=== PATIENT | female | born 2005 | race African-American/Black ===

== ENCOUNTER 2023-10-10 12:36 | Emergency (ER) | payer SELFPAY ==
[~2023-10-10] VITALS: Ht 165.1 cm; Wt 59.0 kg
[2023-10-10 12:55] VITALS: O2SAT 100
[2023-10-10] MEDS ORDERED: IBUP-2028 MT (18:50)
[2023-10-10] MEDS ORDERED: ALBU6.7H15 INH (18:50)
[2023-10-10] MEDS ORDERED: BO1 TP (18:50)
[2023-10-10] MEDS ORDERED: ACYC200C31 MT (18:53)
[2023-10-10 19:05] VITALS: BP 124/86; PULSE 103; RESP 16; TEMP 98.4
== END 2023-10-10 19:23 | disposition home or self-care (01) ==
LOC: ER 12:36
DX: B00.9 Herpesviral infection, unspecified (principal); M25.531 Pain in right wrist; M79.672 Pain in left foot; Z76.0 Encounter for issue of repeat prescription; Y04.0XXA Assault by unarmed brawl or fight, initial encounter; Y93.89 Activity, other specified; Y92.89 Other specified places as the place of occurrence of the external cause; Y99.8 Other external cause status
CPT/HCPCS: 29125; 73110; 73620; 99284

== ENCOUNTER 2024-03-16 21:26 | Emergency (ER) | payer MEDICAID ==
[~2024-03-16] VITALS: Ht 157.5 cm; Wt 60.0 kg
[~2024-03-16 21:26] MED LIST: ACYC200C31 MT; ALBU6.7H15 INH; BO1 TP; IBUP-2028 MT
[2024-03-16 21:34] VITALS: BP 135/56; PULSE 129; TEMP 98.7; O2SAT 100
[2024-03-16] MEDS ORDERED: MORPHINE SULFATE 4 MG/ML INJ (FOR IV/IM USE) IM ONE (21:45)
[2024-03-16] MEDS ORDERED: ACETAMINOPHEN 325MG TABLET PO ONE (21:45)
[2024-03-16] MEDS: ACETAMINOPHEN 325MG TABLET PO NR (23:17)
[2024-03-16] MEDS: MORPHINE SULFATE 4 MG/ML INJ (FOR IV/IM USE) IM NR (23:18)
[2024-03-16] MEDS ORDERED: SILV20CR13 TP (23:54)
[2024-03-16] MEDS ORDERED: HYDR-4001 MT (23:54)
[2024-03-17] MEDS: SILVER SULFADIAZINE 1% CREAM 25GM TOP ONE (00:05)
[2024-03-17 00:30] VITALS: RESP 18
== END 2024-03-17 02:51 | disposition home or self-care (01) ==
LOC: ER 21:26
DX: T25.221A Burn of second degree of right foot, initial encounter (principal); J45.909 Unspecified asthma, uncomplicated; F12.90 Cannabis use, unspecified, uncomplicated; F15.90 Other stimulant use, unspecified, uncomplicated; Z79.899 Other long term (current) drug therapy; Z76.0 Encounter for issue of repeat prescription; X58.XXXA Exposure to other specified factors, initial encounter; Y93.89 Activity, other specified; Y92.89 Other specified places as the place of occurrence of the external cause; Y99.8 Other external cause status
CPT/HCPCS: 96372; 99283; J2270; Z7610

== ENCOUNTER 2024-11-02 01:01 | Emergency (ER) | payer MEDICAID ==
[~2024-11-02] VITALS: Ht 162.6 cm; Wt 62.0 kg
[~2024-11-02 01:01] MED LIST changes: +HYDR-4001 MT; +SILV20CR13 TP
[2024-11-02 01:17] VITALS: O2SAT 99
[2024-11-02 02:06] LABS: BASOPHILS % 0.8 % (0.0-2.0); DIFFERENTIAL COMMENT 0; EOSINOPHILS % 1.2 % (0.0-5.0); HEMOGLOBIN. 10.9 g/dL (12.0-16.0); LYMPHOCYTES % 20.9 % (20.0-50.0); MEAN CORPUSCULAR HEMOGLOBIN 22.6 pg (28.0-32.0); MEAN CORPUSCULAR VOLUME 70.6 fL (81.0-99.0); MEAN PLATELET VOLUME 9.3 fl (7.4-10.4); MONOCYTES % 8.7 % (2.0-8.0); NEUTROPHILS % 68.4 % (40.0-76.0); PLATELET 311 x1000/uL (130-400); RED BLOOD CELL COUNT 4.82 mill/uL (4.2-5.4); RED CELL DISTRIBUTION WIDTH 20.2 % (11.6-14.6); WHITE BLOOD COUNT 12.3 x1000/uL (4.5-11.0)
[2024-11-02 02:08] LABS: CHLORIDE 100 mEq/L (98-107); POTASSIUM 3.8 mEq/L (3.5-5.1); SODIUM 137 mEq/L (136-145)
[2024-11-02 02:09] LABS: CALCIUM 9.3 mg/dL (8.7-10.4); CARBON DIOXIDE 30 mEq/L (21-32)
[2024-11-02 02:14] LABS: CREATININE 0.7 mg/dL (0.6-1.0); GLUCOSE 107 mg/dL (70-105); UREA NITROGEN BLOOD 7 mg/dL (9-23)
[2024-11-02 05:39] VITALS: BP 112/74; PULSE 98; RESP 20; TEMP 36.9; O2SAT 100
[2024-11-02] MEDS ORDERED: AMOX1TAB16 MT (05:43)
== END 2024-11-02 05:56 | disposition home or self-care (01) ==
LOC: ER 01:01
DX: H66.92 Otitis media, unspecified, left ear (principal); J45.909 Unspecified asthma, uncomplicated; F10.90 Alcohol use, unspecified, uncomplicated; F12.90 Cannabis use, unspecified, uncomplicated; F19.90 Other psychoactive substance use, unspecified, uncomplicated; Z79.899 Other long term (current) drug therapy; Y90.9 Presence of alcohol in blood, level not specified
CPT/HCPCS: 36415; 80048; 85025; 99283

== ENCOUNTER 2025-01-09 13:07 | Emergency (ER) | payer MEDICAID ==
[~2025-01-09] VITALS: Ht 172.7 cm; Wt 79.0 kg
[~2025-01-09 13:07] MED LIST changes: +AMOX1TAB16 MT
[2025-01-09 13:12] VITALS: O2SAT 100
[2025-01-09 15:20] LABS: CLARITY URINE CLEAR (CLEAR); COLOR URINE YELLOW (YELLOW); GLUCOSE URINE NEGATIVE (NEGATIVE); KETONES URINE NEGATIVE (NEGATIVE); LEUKOCYTE ESTERASE URINE 1+ (NEGATIVE); NITRITE URINE NEGATIVE (NEGATIVE); OCCULT BLOOD URINE NEGATIVE (NEGATIVE); PH URINE 7.0 (4.5-8.0); PROTEIN URINE NEGATIVE (NEGATIVE); SPECIFIC GRAVITY URINE 1.009 (1.005-1.030); UROBILINOGEN URINE 0.2 E.U./dL (0.2-1.0)
[2025-01-09 15:59] LABS: BASOPHILS % 0.6 % (0.0-2.0); EOSINOPHILS % 1.7 % (0.0-5.0); HEMATOCRIT. 34.7 % (36.0-48.0); HEMOGLOBIN. 11.1 g/dL (12.0-16.0); LYMPHOCYTES % 17.6 % (20.0-50.0); MEAN PLATELET VOLUME 9.8 fl (7.4-10.4); MONOCYTES % 10.4 % (2.0-8.0); NEUTROPHILS % 69.7 % (40.0-76.0); PLATELET 282 x1000/uL (130-400); RED BLOOD CELL COUNT 4.63 mill/uL (4.2-5.4); RED CELL DISTRIBUTION WIDTH 19.4 % (11.6-14.6)
[2025-01-09 16:15] LABS: BACTERIA URINE NONE SEEN; RBC URINE 0-2 /hpf (0-2); SQUAMOUS EPITHELIAL CELL URINE 1+ /lpf (RARE/1+)
[2025-01-09 16:17] LABS: CREATININE 0.5 mg/dL (0.6-1.0); UREA NITROGEN BLOOD < 5 mg/dL (9-23)
[2025-01-09 16:29] LABS: B-HCG QUANTITATIVE 120678 mIU/mL (<6)
[2025-01-09] MEDS ORDERED: CEPH500C2 MT (17:15)
[2025-01-09] MEDS ORDERED: PREN1CAP28 MT (17:15)
[2025-01-09 17:29] VITALS: BP 110/62; PULSE 97; RESP 17; TEMP 36.7; O2SAT 100
== END 2025-01-09 17:30 | disposition home or self-care (01) ==
LOC: ER 13:07
DX: O26.891 Other specified pregnancy related conditions, first trimester (principal); O99.511 Diseases of the respiratory system complicating pregnancy, first trimester; R10.2 Pelvic and perineal pain; Z3A.09 9 weeks gestation of pregnancy
CPT/HCPCS: 36415; 76801; 80048; 81003; 81025; 84702; 85025; 99284